=== PATIENT | female | born 1935 | race Caucasian/White ===

== ENCOUNTER 2018-04-14 07:15 | Emergency (ER) | payer OTHER ==
[~2018-04-14] VITALS: Ht 152.4 cm; Wt 52.6 kg
[~2018-04-14 07:15] MED LIST: IMODIUM A-D2 MG PO; PAXIL PO; PEPCID40 MG PO; SYNTHROID50 MCG PO; ZOFRAN4 MG PO
[2018-04-14] MEDS ORDERED: PLAVIX75 MG (07:27)
[2018-04-14] MEDS ORDERED: ARICEPT10 MG (07:27)
== END 2018-04-14 13:40 | disposition home or self-care (01) ==
LOC: ER 07:15
DX: R53.1 Weakness (principal); E86.0 Dehydration; N39.0 Urinary tract infection, site not specified; B96.1 Klebsiella pneumoniae [K. pneumoniae] as the cause of diseases classified elsewhere; B96.4 Proteus (mirabilis) (morganii) as the cause of diseases classified elsewhere

== ENCOUNTER 2020-12-12 03:30 | Outpatient (CLI) | payer OTHER ==
[~2020-12-12 03:30] MED LIST changes: +ARICEPT10 MG; +PLAVIX75 MG
== END 2020-12-12 03:32 | disposition home or self-care (01) ==
LOC: PPH VACUNA 03:30
PROVIDERS: ATTEND Emergency Medicine Pediatric Emergency Medicine
DX: Z23 Encounter for immunization (principal)

== ENCOUNTER 2021-01-02 | Outpatient (CLI) | payer OTHER | END 2021-01-02 10:00 | disposition home or self-care (01) | LOC: PPH VACUNA | PROVIDERS: ATTEND Emergency Medicine Pediatric Emergency Medicine | DX: Z23 Encounter for immunization (principal) ==

== ENCOUNTER → 2021-08-21 15:50 | Outpatient (CLI) | payer OTHER ==
[~2021-08-21 15:50] MED LIST changes: +CARAFATE1 GM/10 ML PO
== END | disposition home or self-care (01) ==
LOC: PPH VACUNA 15:50
PROVIDERS: ATTEND Emergency Medicine Pediatric Emergency Medicine
DX: Z23 Encounter for immunization (principal)

== ENCOUNTER 2021-09-14 05:50 | Day surgery (SDC) | payer OTHER ==
[~2021-09-14 05:50] MED LIST changes: -CARAFATE1 GM/10 ML PO
[2021-09-14] MEDS ORDERED: CARAFATE1 GM/10 ML PO (08:40)
== END 2021-09-14 09:45 | disposition home or self-care (01) ==
LOC: AMB-ENDOS 05:50
PROVIDERS: ATTEND Surgery
DX: D13.0 Benign neoplasm of esophagus (principal); K57.32 Diverticulitis of large intestine without perforation or abscess without bleeding

== ENCOUNTER → 2022-08-24 | Outpatient (CLI) | payer OTHER ==
[~2022-08-24] MED LIST changes: +CARAFATE1 GM/10 ML PO
== END | disposition home or self-care (01) ==
LOC: WOUND MED 08:45
PROVIDERS: ATTEND Specialist
DX: L97.912 Non-pressure chronic ulcer of unspecified part of right lower leg with fat layer exposed (principal)
CPT/HCPCS: 11042; A4927; A6223

== ENCOUNTER 2022-09-04 12:28 | Outpatient (CLI) | payer OTHER | END 2022-09-04 12:30 | disposition home or self-care (01) | LOC: WOUND MED 12:28 | PROVIDERS: ATTEND Specialist | DX: L97.912 Non-pressure chronic ulcer of unspecified part of right lower leg with fat layer exposed (principal) | CPT/HCPCS: 97602; A4927; A6219; A6223 ==

== ENCOUNTER 2022-09-07 09:35 | Outpatient (CLI) | payer OTHER | END 2022-09-07 10:00 | disposition home or self-care (01) | LOC: WOUND MED 09:35 | PROVIDERS: ATTEND Specialist | DX: L97.912 Non-pressure chronic ulcer of unspecified part of right lower leg with fat layer exposed (principal) | CPT/HCPCS: 11042; A4927; A6219; A6223; A6251 ==

== ENCOUNTER 2022-09-14 07:58 | Outpatient (CLI) | payer OTHER | END 2022-09-14 10:00 | disposition home or self-care (01) | LOC: WOUND MED 07:58 | PROVIDERS: ATTEND Specialist | DX: E11.621 Type 2 diabetes mellitus with foot ulcer (principal); L97.919 Non-pressure chronic ulcer of unspecified part of right lower leg with unspecified severity; Z79.4 Long term (current) use of insulin | CPT/HCPCS: A4927; A6223; G0463 ==

== ENCOUNTER 2023-04-01 10:30 | Outpatient (CLI) | payer OTHER | END 2023-04-01 10:32 | disposition home or self-care (01) | LOC: SONOGRAMA 10:30 | PROVIDERS: ATTEND Pathology Anatomic Pathology | DX: D34 Benign neoplasm of thyroid gland (principal); E04.9 Nontoxic goiter, unspecified ==